=== PATIENT | male | born 1990 | race African-American/Black ===

== ENCOUNTER 2020-11-29 12:37 | Emergency (ER) | payer SELFPAY ==
[~2020-11-29] VITALS: Ht 182.9 cm; Wt 101.4 kg
[2020-11-29 13:08] VITALS: TEMP 98.6
[2020-11-29 14:33] VITALS: BP 125/85; PULSE 48
== END 2020-11-29 14:44 | disposition home or self-care (01) ==
LOC: COL.ER 12:37
DX: S01.20XA Unspecified open wound of nose, initial encounter (principal); W22.8XXA Striking against or struck by other objects, initial encounter; Y99.0 Civilian activity done for income or pay

== ENCOUNTER 2021-09-30 19:11 | Observation (INO) | payer SELFPAY ==
[~2021-09-30] VITALS: Ht 182.9 cm; Wt 106.8 kg
[~2021-09-30 19:11] MED LIST: PROTONIX 40MG T40 MG PO
[2021-09-30 20:20] LABS: ALBUMIN 3.6 gm/dL (3.5-5.0); BILIRUBIN,TOTAL 0.8 mg/dL (0.2-1.2); TOTAL PROTEIN 6.9 gm/dL (6.2-8.1)
[2021-09-30 20:38] LABS: BILIRUBIN,DIRECT 0.3 mg/dL (0.0-0.5)
[2021-09-30 23:34] VITALS: BP 136/76; PULSE 59; TEMP 98
[2021-10-01] VITALS (12 sets, daily range): BP systolic 128–152; BP diastolic 64–95; PULSE 54–79; TEMP 97.7–99.9
[2021-10-01 01:15] LABS: MUCOUS Present (NOT PRESENT); PH 6 (5-8); SQUAMOUS EPITHELIAL None Seen /hpf (0-10); URINE APPEARANCE Clear (CLEAR/HAZY); URINE BACTERIA None Seen /hpf (NONE SEEN); URINE BILIRUBIN Negative (NEGATIVE); URINE BLOOD Negative (NEGATIVE); URINE COLOR Yellow (YELLOW); URINE GLUCOSE Negative (NEGATIVE); URINE KETONE Negative (NEGATIVE); URINE LEUKOCYTE ESTERASE Negative (NEGATIVE); URINE NITRATE Negative (NEGATIVE); URINE PROTEIN(semi-quant) Negative (NEGATIVE); URINE UROBILINOGEN Negative (NEGATIVE); URINE WBC 0-2 /hpf (0-2)
[2021-10-01 01:22] LABS: COLLECTION METHOD CLEAN CATCH
[2021-10-01 08:47] LABS: HEMATOCRIT 40.2 % (42.0-52.0); HEMOGLOBIN 12.8 g/dl (13.5-18.0); MEAN CELL VOLUME 79 fl (80.0-100.0); MEAN CORPUSCULAR HEMOGLOBIN 25 pg (27-31); MEAN CORPUSCULAR HGB CONC 32 g/dl (33.0-37.0); MEAN PLATELET VOLUME 10.6 fl (7.4-10.4); PLATELET COUNT 225 K/mm3 (130-400); RED BLOOD COUNT 5.11 M/mm3 (4.20-5.60); REDCELL DISTRIBUTION WIDTH-CV 15.2 % (11.5-14.5)
[2021-10-01 08:59] LABS: ALBUMIN 3.7 gm/dL (3.5-5.0); BILIRUBIN,TOTAL 1.5 mg/dL (0.2-1.2); CALCIUM 9.1 mg/dL (8.4-10.2); CREATININE, serum 0.85 mg/dL (0.72-1.25); POTASSIUM 3.8 mmol/L (3.5-4.5); TOTAL PROTEIN 7.4 gm/dL (6.2-8.1)
--- NOTE | 2021-10-01 09:02 | NUR ---
Initial visit; Roberto is a very pleasant young man who was receptive to [facility] visit. He says he is feeling better with the meds he has been given and would welcome being placed on [facility] Nurse's praer list. [facility] Nurse offered God's blessings and mentioned to roberto that Spiritual Care always available to him here.
--- NOTE | 2021-10-01 11:01 | NUR ---
Medical Equipment Technician met with patient to discuss discharge planning. Patient lives in [place] with a roommate and does not have a current primary care physician. Patient is self pay and agreeable to have follow up appointment scheduled at [facility]. Patient is employed at [employer] and advised after 90 days, which he is close to, he will qualify for health insurance. Patient obtains medications from [employer] and does not use any DME. Patient states he is not and has no children. Patient states his family lives out of state, but his Uncle Simon (ph#[phone]) lives here in [facility]. Patient plans to return home at time of discharge. SW contacted [facility] and made appointment for 10/10/21 at 1630. JIMY provided appointment to unit trust manager. Discharge Plan: Home
[2021-10-01] MEDS ORDERED: NORCO 325 MG-51 TAB PO (14:42)
--- NOTE | 2021-10-01 21:50 | NUR ---
ASSESSMENT COMPLETE. PT. SITTING IN BED WATCHING TV. STATES HE'S IN "A LITTLE BIT OF PAIN" BUT DENIES WANTING PAIN MEDICATION. 5 LAP SITES ON ABD CDI. CALL LIGHT IN REACH. NO FURHTER NEEDS AT THIS TIME.
[2021-10-02 04:00] VITALS: BP 116/69; PULSE 71; TEMP 98.7
[2021-10-02 07:51] VITALS: BP 128/65; PULSE 73; TEMP 98.5
--- NOTE | 2021-10-02 11:06 | NUR ---
PATIENT ALERT AND ORIENTED X3. VSS. LAP SITES CDI X5. PATIENT DENIES PAIN. AM MEDS ADMINISTERED. CALL LIGHT WITHIN REACH.
--- NOTE | 2021-10-02 11:07 | NUR ---
DISCHARGE INSTRUCTIONS PROVIDED. FOLLOW UP APPOINTMENTS DISCUSSED. IV DC'D. PATIENT DENIES ANY QUESTIONS OR CONCERNS. PATIENT ESCORTED OUT.
== END 2021-10-02 10:56 | disposition home or self-care (01) ==
LOC: COL.ER 19:11 → SURG 20:00
PROVIDERS: Emergency Medicine; Physician Assistant; Surgery; ADMIT Student in an Organized Health Care Education/Training Program
DX: K80.12 Calculus of gallbladder with acute and chronic cholecystitis without obstruction (principal); N32.89 Other specified disorders of bladder; F17.210 Nicotine dependence, cigarettes, uncomplicated
CPT/HCPCS: C9113; G0378; J0690; J1100; J1170; J1885; J2270; J2405; J2704; J2765; J3010; J7030; J7120; Q9967